=== PATIENT | male | born 1975 | race Caucasian/White ===

== ENCOUNTER 2023-06-24 19:01 | Emergency (ER) | payer SELFPAY ==
[2023-06-24 19:15] VITALS: BP 150/89
[2023-06-24] MEDS: ADACEL 0.5 ML IM (22:06)
[2023-06-24 22:15] VITALS: BP 135/87
[2023-06-24 22:16] VITALS: BP 135/87
--- NOTE | 2023-06-24 23:14 | ED.SKININJ ---
HPI-Injury
General
Chief Complaint: Head Injury
Source: patient
Exam Limitations: none
Time Seen by Provider: 06/24/23 21:22
Nursing documentation reviewed up to this point in time: agreed with
Travel History
Have you had any contact with someone who has COVID-19?: No
Do you have any symptoms of coronavirus? Fever > 100 degrees, chills, cough, shortness of breath, sore throat, loss of taste or smell, muscle aches, or headache?: No
History of Present Illness-Injury
Is this injury a work related problem?: Yes
Is pt an associate of [facility]?: No
Initial Injury comments:
Hit head on piece of metal at work. Sustained lac to left parietal scalp. INjury occurred just [employer]
Past History
Past History
ED Past Medical History: None
ED Past Surgical History: None
Review of Systems
Review of Systems
Allergies reviewed?: Yes
All Other Systems: ROS reviewed and negative except as documented in HPI and ROS
Constitutional: Reports no symptoms
Musculoskeletal: Reports no symptoms
Skin: Reports other (Laceration left parietal scalp)
Neurological: Reports no symptoms
Psychiatric: Reports no symptoms
Skin Exam
Laceration
Left Parietal:
Length in cm: 1
Orientation: diagonal
Type of Laceration: simple
Any active bleeding?: no active bleeding
Distal skin color and temperature: normal-warm & good color
Normal distal neurovascular exam: Yes
Phy Exam
General Physical Exam
General Presentation: well appearing and no apparent distress
General age: appears stated age
General Skin: warm and dry
General Habitus: normal
General Mental: alert
Neurological Exam
Neurological Exam: alert, oriented x3, CN II-XII intact, no motor deficits and normal gait
[place] Coma Scale
Eye Opening: Spontaneous
Verbal Response: Oriented
Motor Response: Obeys Commands
GCS Total Score: 15
Musculoskeletal Exam
Musculoskeletal Exam: full ROM and neuro vasc intact
Skin Exam
Skin Exam: normal color, warm/dry and no rash
Psychiatric Exam
Psychiatric Exam: normal mood/affect
Course
Orders/Labs/Results
Orders:
Orders
06/24/23 21:52
Tetanus/Diphth/Acelpertussis [Adacel] 0.5 ml IM .ONCE ONE
Vital Signs
Initial and Last Documented VS:
Initial Vital Signs
Temp Pulse Resp BP Pulse Ox
98.1 F 66 19 150/89 96
06/24/23 19:15 06/24/23 19:15 06/24/23 19:15 06/24/23 19:15 06/24/23 19:15
Last Documented Vital Signs
Temp Pulse Resp BP Pulse Ox
98.1 F 58 19 135/87 96
06/24/23 19:15 06/24/23 22:16 06/24/23 19:15 06/24/23 22:16 06/24/23 19:15
Procedures
Laceration Closure
Left Parietal:
Status of Wound: clean
Description of Wound Edges: sharp
Preparation: cleaned with saline
Revision/Debridement: routine- no revision
Wound exploration: explored to base- no FB
Type of Closure: Dermabond-skin glue
*Critical Care Note
Total Time (30-74mins, 75-104mins- exclusive of procedures): Not Applicable
ED Attending Note
-
Portions of this chart may have been created with voice recognition software.� Occasional wrong word or��sound alike� substitutions may have occurred due to the inherent limitations of voice recognition software.
Discharge Plan
Departure
Patient Disposition: Home (Routine Discharge)
Date of Disposition: 06/24/23
Time of Disposition: 21:53
Patient with high blood pressure during this ER visit?: No
Condition: Good
Covid-19: Not Applicable
Discharge Problem:
Head injury
Instructions: Laceration Repair With Glue (DC), Head Injury in Adults (DC)
Activity Restrictions/Additional Instructions:
Follow up with your workman's comp provider in the AM
Interventions
Interventions:
*Risk Screen - Suicide Last Done: 06/24/23 19:15
*General Assessment Last Done: 06/24/23 19:15
*Neglect/Abuse Screening Last Done: 06/24/23 19:15
*ED COVID-19 Vaccine History Last Done: 06/24/23 19:15
*Nursing Disposition Last Done: 06/24/23 22:16
ED- Neurological Assessment Last Done: 06/24/23 22:06
ED-Skin Assessment Last Done: 06/24/23 22:06
Discharge Date and Time
Discharge Date/Time: 06/24/23 22:17
== END 2023-06-24 22:17 | disposition home or self-care (01) ==
LOC: EMR 19:01
PROVIDERS: EMERGENCY PHYSICIAN Student in an Organized Health Care Education/Training Program; FAMILY PHYSICIAN Family Medicine
DX: S01.01XA Laceration without foreign body of scalp, initial encounter (principal); S09.90XA Unspecified injury of head, initial encounter; W22.8XXA Striking against or struck by other objects, initial encounter; Y99.0 Civilian activity done for income or pay; Z23 Encounter for immunization
CPT/HCPCS: 99284; 90471; 12011; 90715